=== PATIENT | female | born 1940 | race Caucasian/White ===

== ENCOUNTER 2017-05-08 11:22 | Emergency (ER) | payer OTHER ==
[~2017-05-08] VITALS: Wt 44.5 kg
[~2017-05-08 11:22] MED LIST: ALPRAZOLAM0.5 M3 PO; CHOLESTEROL PILL; CIPRODEX 0.3%-7.5 ML OT; COREG3.125 MG PO; HEART PILL; HYDROCODONE BIT1 T11 PO; HYDROCODONE BIT1 T20 PO; PLAVIX75 MG PO; PRAVASTATIN SOD80 MG PO; TEMAZEPAM30 MG PO; VICO75300 PO
[2017-05-08 11:46] LABS: BASO % 0.5 % (0.0-1.0); EOS # 0.2 10*3/uL (0.0-0.4); EOS % 2.8 % (1.0-4.0); HEMATOCRIT 40.1 % (37.0-47.0); HEMOGLOBIN 13.2 g/dl (12.0-16.0); LYMPH # 3.3 10*3/uL (1.3-4.4); LYMPH % 41.3 % (27.0-41.0); MEAN CELL VOLUME 95.2 fl (81.0-99.0); MEAN CORPUSCULAR HGB 31.4 pg (27.0-31.0); MEAN CORPUSCULAR HGB CONC 32.9 g/dl (33.0-37.0); MONO # 0.5 10*3/uL (0.1-1.0); MONO % 5.7 % (3.0-9.0); NEUT # 3.9 10*3/uL (2.3-7.9); NEUT % 49.4 % (47.0-73.0); PLATELET COUNT AUTOMATED 247 10*3/uL (130-400); RED BLOOD COUNT 4.21 10*6/uL (4.10-5.10); RED CELL DISTRI WIDTH 12.4 % (0-14.5); WHITE BLOOD COUNT 7.9 10*3/uL (4.8-10.8)
[2017-05-08 11:54] LABS: ACT PARTIAL THROMBO TIME 24.5 SECONDS (20.8-31.5)
[2017-05-08 12:04] LABS: ALBUMIN 3.7 gm/dl (3.1-4.5); ALKALINE PHOSPHATASE 73 U/L (45-117); BUN 6 mg/dl (7-24); CHLORIDE 106 mmol/L (98-107); CREATININE 0.69 mg/dL (0.55-1.02); SGOT/AST 14 IU/L (3-35); SGPT/ALT 11 U/L (12-78); SODIUM 139 mmol/L (136-145); TOTAL PROTEIN 6.8 gm/dL (6.4-8.2)
[2017-05-08 12:05] LABS: TROPONIN I < 0.015 ng/ml (<0.045)
[2017-05-08] MEDS ORDERED: COREG3.125 MG PO (12:08)
[2017-05-08] MEDS ORDERED: PLAVIX75 M1 PO ×2 (12:08→12:51)
[2017-05-08] MEDS ORDERED: PRAVACHOL80 M1 GT (12:09)
[2017-05-08] MEDS ORDERED: PROZAC20 MG PO (12:09)
[2017-05-08 12:36] LABS: BILIRUBIN NEGATIVE (NEGATIVE); BLOOD TRACE-INTACT (NEGATIVE); CLARITY SL CLOUDY (CLEAR); COLOR YELLOW (YELLOW); GLUCOSE NEGATIVE (NEGATIVE); KETONE NEGATIVE (NEGATIVE); LEUKO ESTERASE 2+ (NEGATIVE); NITRITE NEGATIVE (NEGATIVE); PH 5.5 (5.0-9.0); UROBILINOGEN 0.2 E.U./dl (0.2-1.0)
[2017-05-08 12:43] LABS: URINE AMPHETAMINES < 1000 (1000ng/ml); URINE BARBITURATES < 200 (200ng/ml); URINE BENZODIAZEPINES > 200 (200ng/ml); URINE CANNABINOIDS (THC) < 50 (50ng/ml); URINE COCAINE < 300 (300ng/ml); URINE METHADONE < 300 (300ng/ml); URINE OPIATES < 300 (300ng/ml)
[2017-05-08 12:46] LABS: WBC 16-20 wbc/hpf (0-5)
[2017-05-08 12:47] LABS: BACTERIA TRACE
[2017-05-08 12:49] LABS: URINE PHENCYCLIDINE < 25 (25ng/ml)
[2017-05-08] MEDS ORDERED: Bactrim DS PO (12:51)
== END 2017-05-08 13:41 | disposition home or self-care (01) ==
LOC: ED 11:22
PROVIDERS: Nurse Practitioner Family
DX: N30.01 Acute cystitis with hematuria (principal); R03.0 Elevated blood-pressure reading, without diagnosis of hypertension; R51 Headache; R29.810 Facial weakness; F17.200 Nicotine dependence, unspecified, uncomplicated; Z79.899 Other long term (current) drug therapy

== ENCOUNTER 2017-07-04 18:18 | Emergency (ER) | payer OTHER ==
[~2017-07-04] VITALS: Ht 165.1 cm; Wt 44.9 kg
[~2017-07-04 18:18] MED LIST changes: +Bactrim DS PO; +PLAVIX75 M1 PO; +PRAVACHOL80 M1 GT; +PROZAC20 MG PO
[2017-07-04] MEDS ORDERED: TEMAZEPAM30 MG PO (18:24)
[2017-07-04] MEDS ORDERED: ALPRAZOLAM0.5 M3 PO (18:25)
[2017-07-04 20:02] LABS: BASO % 0.5 % (0.0-1.0); EOS % 0.3 % (1.0-4.0); HEMATOCRIT 43.5 % (37.0-47.0); HEMOGLOBIN 14.6 g/dl (12.0-16.0); LYMPH # 2.3 10*3/uL (1.3-4.4); LYMPH % 31.5 % (27.0-41.0); MEAN CELL VOLUME 91.4 fl (81.0-99.0); MEAN CORPUSCULAR HGB 30.7 pg (27.0-31.0); MEAN CORPUSCULAR HGB CONC 33.6 g/dl (33.0-37.0); MEAN PLATELET VOLUME 8.6 fl (9.6-12.3); MONO # 0.4 10*3/uL (0.1-1.0); MONO % 4.9 % (3.0-9.0); NEUT # 4.6 10*3/uL (2.3-7.9); NEUT % 62.5 % (47.0-73.0); PLATELET COUNT AUTOMATED 289 10*3/uL (130-400); RED BLOOD COUNT 4.76 10*6/uL (4.10-5.10); RED CELL DISTRI WIDTH 12.1 % (0-14.5); WHITE BLOOD COUNT 7.3 10*3/uL (4.8-10.8)
[2017-07-04 20:18] LABS: ALBUMIN 4.4 gm/dl (3.1-4.5); ALKALINE PHOSPHATASE 73 U/L (45-117); BUN 6 mg/dl (7-24); CHLORIDE 103 mmol/L (98-107); CREATININE 0.76 mg/dL (0.55-1.02); POTASSIUM 3.8 mmol/L (3.5-5.1); SGOT/AST 15 IU/L (3-35); SGPT/ALT 14 U/L (12-78); SODIUM 136 mmol/L (136-145)
[2017-07-04 20:27] LABS: TROPONIN I < 0.015 ng/ml (<0.045)
[2017-07-04] MEDS ORDERED: NORCO 5-325 TA1 EACH PO (21:41)
[2017-07-04] MEDS ORDERED: CIPRO250 MG PO (21:41)
== END 2017-07-04 21:47 | disposition home or self-care (01) ==
LOC: ED 18:18
PROVIDERS: Emergency Medicine Emergency Medical Services
DX: J43.9 Emphysema, unspecified (principal); H60.501 Unspecified acute noninfective otitis externa, right ear; Z79.899 Other long term (current) drug therapy; Z95.5 Presence of coronary angioplasty implant and graft

== ENCOUNTER 2018-06-13 11:12 | Emergency (ER) | payer OTHER ==
[~2018-06-13] VITALS: Ht 162.5 cm; Wt 44.9 kg
[~2018-06-13 11:12] MED LIST changes: +CIPRO250 MG PO; +NORCO 5-325 TA1 EACH PO; -PRAVACHOL80 M1 GT; +PRAVACHOL80 M1 PO
== END 2018-06-13 13:09 | disposition home or self-care (01) ==
LOC: ED 11:12
DX: S20.212A Contusion of left front wall of thorax, initial encounter (principal); R03.0 Elevated blood-pressure reading, without diagnosis of hypertension; J43.9 Emphysema, unspecified; Z79.2 Long term (current) use of antibiotics; Z79.899 Other long term (current) drug therapy; W06.XXXA Fall from bed, initial encounter; Y93.89 Activity, other specified; Y92.89 Other specified places as the place of occurrence of the external cause; Y99.8 Other external cause status

== ENCOUNTER 2018-08-02 12:24 | Inpatient (IN) | payer OTHER ==
[~2018-08-02] VITALS: Ht 165.1 cm; Wt 45.8 kg
--- NOTE | ~2018-08-02 | EKG ---
[place], [place] ELECTROCARDIOGRAM REPORT NAME: ZACH ALVARENGA UNIT #: [id number] ROOM: [facility] DOCTOR: ARMEN DRAFT REPORT BIRTHDATE: [birth year] [facility] Test Date: 2018-08-02 Test Time: 13:06:36 Pat Name: ZACH ALVARENGA Department: Room: 005 Gender: F [employer] Technologist: EDUARDO : 1940 Requested By: JOO MENDOSA Order Number: [id number] Reading MD: Gt Snider MD Measurements Intervals [place] Rate: 74 P: 80 NE: 171 QRS: 56 QRSD: 88 T: 71 QT: 443 QTc: 492 Interpretive Statements Sinus rhythm Probable anteroseptal infarct, recent Electronically Signed On 08-02-2018 14:33:50 PST by Gt Snider MD CM:EKGRPT:ELECTROCARDIOGRAM REPORT [id number] JOO MENA DRAFT REPORT JOO MENDOSA DO
[2018-08-02 12:25] VITALS: BP 180/84
[2018-08-02 12:44] LABS: BASO % 0.5 % (0.0-1.0); EOS # 0.1 10*3/uL (0.0-0.4); EOS % 1.9 % (1.0-4.0); HEMOGLOBIN 13.2 g/dl (12.0-16.0); LYMPH # 2.9 10*3/uL (1.3-4.4); LYMPH % 39.3 % (27.0-41.0); MEAN CELL VOLUME 90.1 fl (81.0-99.0); MEAN CORPUSCULAR HGB 30.5 pg (27.0-31.0); MEAN CORPUSCULAR HGB CONC 33.8 g/dl (33.0-37.0); MEAN PLATELET VOLUME 9.1 fl (9.6-12.3); MONO # 0.4 10*3/uL (0.1-1.0); MONO % 5.6 % (3.0-9.0); NEUT # 3.8 10*3/uL (2.3-7.9); NEUT % 52.3 % (47.0-73.0); PLATELET COUNT AUTOMATED 272 10*3/uL (130-400); RED BLOOD COUNT 4.33 10*6/uL (4.10-5.10); RED CELL DISTRI WIDTH 12.6 % (0-14.5); WHITE BLOOD COUNT 7.3 10*3/uL (4.8-10.8)
[2018-08-02 12:55] LABS: ACT PARTIAL THROMBO TIME 23.6 SECONDS (20.8-31.5)
[2018-08-02 13:04] LABS: ALBUMIN 3.8 gm/dl (3.1-4.5); ALKALINE PHOSPHATASE 61 U/L (45-117); BUN 7 mg/dl (7-24); CHLORIDE 106 mmol/L (98-107); CREATININE 0.67 mg/dL (0.55-1.02); LIPASE 114 U/L (73-393); SGOT/AST 14 IU/L (3-35); SGPT/ALT 15 U/L (12-78); SODIUM 141 mmol/L (136-145); TOTAL PROTEIN 7.1 gm/dL (6.4-8.2)
[2018-08-02 13:09] LABS: TROPONIN I < 0.015 ng/ml (<0.045)
[2018-08-02 13:37] LABS: BILIRUBIN NEGATIVE (NEGATIVE); BLOOD NEGATIVE (NEGATIVE); CLARITY SL CLOUDY (CLEAR); COLOR YELLOW (YELLOW); GLUCOSE NEGATIVE (NEGATIVE); KETONE NEGATIVE (NEGATIVE); LEUKO ESTERASE 1+ (NEGATIVE); NITRITE NEGATIVE (NEGATIVE); SPECIFIC GRAVITY 1.015 (1.005-1.030); UROBILINOGEN 0.2 E.U./dl (0.2-1.0)
[2018-08-02 13:49] LABS: WBC 41-50 wbc/hpf (0-5)
[2018-08-02 13:50] LABS: BACTERIA 2+; EPITHELIAL CELLS 20-30; RBC 21-30 rbc/hpf (0-2)
[2018-08-02 16:00] VITALS: BP 190/95
[2018-08-02] MEDS ORDERED: PROZAC20 MG PO (16:18)
[2018-08-02] MEDS ORDERED: EFFEXOR XR37.5 M1 PO (16:19)
[2018-08-02 16:40] VITALS: BP 190/95
[2018-08-02 20:00] VITALS: BP 126/57
[2018-08-03] VITALS (7 sets, daily range): BP systolic 126–166; BP diastolic 52–79
[2018-08-03 06:40] LABS: BASO % 0.3 % (0.0-1.0); EOS # 0.1 10*3/uL (0.0-0.4); EOS % 1.8 % (1.0-4.0); HEMOGLOBIN 11.9 g/dl (12.0-16.0); LYMPH # 2.4 10*3/uL (1.3-4.4); LYMPH % 36.1 % (27.0-41.0); MEAN CORPUSCULAR HGB 29.6 pg (27.0-31.0); MEAN CORPUSCULAR HGB CONC 32.2 g/dl (33.0-37.0); MEAN PLATELET VOLUME 9.4 fl (9.6-12.3); MONO # 0.4 10*3/uL (0.1-1.0); MONO % 5.8 % (3.0-9.0); NEUT # 3.6 10*3/uL (2.3-7.9); NEUT % 55.7 % (47.0-73.0); PLATELET COUNT AUTOMATED 236 10*3/uL (130-400); RED BLOOD COUNT 4.02 10*6/uL (4.10-5.10); RED CELL DISTRI WIDTH 12.4 % (0-14.5); WHITE BLOOD COUNT 6.5 10*3/uL (4.8-10.8)
[2018-08-03 07:06] LABS: CHLORIDE 109 mmol/L (98-107); POTASSIUM 3.6 mmol/L (3.5-5.1); SODIUM 141 mmol/L (136-145)
[2018-08-03 07:23] LABS: BUN 8 mg/dl (7-24); CHOLESTEROL 227 mg/dL (<200); CREATININE 0.69 mg/dL (0.55-1.02); FREE T4 0.97 ng/dl (0.76-1.46); HDL CHOLESTEROL 43 mg/dl (40-60); LDL CHOLESTEROL 154 mg/dL (9-159); PHOSPHOROUS 3.1 mg/dL (2.5-4.9); THYROID STIM HORMONE (HS) 0.923 uIU/ml (0.358-4.75); TRIGLYCERIDES 151 mg/dl (<150); VLDL CHOLESTEROL 30 mg/dL (6-40)
[2018-08-03 07:28] LABS: VITAMIN D, 25-HYDROXY 14.2 ng/mL (30-100)
[2018-08-04] VITALS: BP 141/59
[2018-08-04 07:04] LABS: BASO % 0.6 % (0.0-1.0); EOS # 0.1 10*3/uL (0.0-0.4); HEMATOCRIT 37.8 % (37.0-47.0); HEMOGLOBIN 12.3 g/dl (12.0-16.0); LYMPH # 2.8 10*3/uL (1.3-4.4); LYMPH % 43.4 % (27.0-41.0); MEAN CELL VOLUME 91.7 fl (81.0-99.0); MEAN CORPUSCULAR HGB 29.9 pg (27.0-31.0); MEAN CORPUSCULAR HGB CONC 32.5 g/dl (33.0-37.0); MEAN PLATELET VOLUME 9.4 fl (9.6-12.3); MONO # 0.4 10*3/uL (0.1-1.0); MONO % 5.8 % (3.0-9.0); NEUT # 3.1 10*3/uL (2.3-7.9); PLATELET COUNT AUTOMATED 225 10*3/uL (130-400); RED BLOOD COUNT 4.12 10*6/uL (4.10-5.10); RED CELL DISTRI WIDTH 12.4 % (0-14.5); WHITE BLOOD COUNT 6.4 10*3/uL (4.8-10.8)
[2018-08-04 07:20] LABS: ALBUMIN 3.4 gm/dl (3.1-4.5); BUN 7 mg/dl (7-24); CHLORIDE 109 mmol/L (98-107); CREATININE 0.52 mg/dL (0.55-1.02); POTASSIUM 3.6 mmol/L (3.5-5.1); SGOT/AST 11 IU/L (3-35); SGPT/ALT 10 U/L (12-78); SODIUM 143 mmol/L (136-145)
[2018-08-04 07:21] LABS: ALKALINE PHOSPHATASE 53 U/L (45-117); TOTAL PROTEIN 6.4 gm/dL (6.4-8.2)
[2018-08-04 08:00] VITALS: BP 183/77
[2018-08-04 12:18] VITALS: BP 176/92
[2018-08-04 15:10] VITALS: BP 155/75
[2018-08-04] MEDS ORDERED: B12,B-12,B 12500 MC1 PO (16:34)
[2018-08-04] MEDS ORDERED: VITAMIN D32000 UNI1 PO (16:34)
[2018-08-04 17:36] VITALS: BP 150/88
[2018-08-04 20:00] VITALS: BP 154/90
[2018-08-05] VITALS: BP 154/83
[2018-08-05 08:28] VITALS: BP 169/72
== END 2018-08-05 11:35 | disposition home or self-care (01) | DRG 690 ==
LOC: ED 12:24 → 5E 16:01 → EDHOLD 16:01 → 5E 16:11
PROVIDERS: Emergency Medicine; Internal Medicine
PROC: 0HQ1XZZ Repair Face Skin, External Approach (ICD-10-PCS; principal; 2018-08-02)
DX: N39.0 Urinary tract infection, site not specified (principal); I25.810 Atherosclerosis of coronary artery bypass graft(s) without angina pectoris; I95.1 Orthostatic hypotension; R63.6 Underweight; J43.9 Emphysema, unspecified; M54.9 Dorsalgia, unspecified; G89.29 Other chronic pain; M54.2 Cervicalgia; M19.90 Unspecified osteoarthritis, unspecified site; F17.210 Nicotine dependence, cigarettes, uncomplicated; I11.9 Hypertensive heart disease without heart failure; S01.112A Laceration without foreign body of left eyelid and periocular area, initial encounter; W01.0XXA Fall on same level from slipping, tripping and stumbling without subsequent striking against object, initial encounter; S00.03XA Contusion of scalp, initial encounter; Y93.89 Activity, other specified; Y92.89 Other specified places as the place of occurrence of the external cause; Y99.8 Other external cause status; Z71.6 Tobacco abuse counseling; Z87.440 Personal history of urinary (tract) infections; Z90.49 Acquired absence of other specified parts of digestive tract; Z95.5 Presence of coronary angioplasty implant and graft; Z95.1 Presence of aortocoronary bypass graft; I25.2 Old myocardial infarction; Z80.1 Family history of malignant neoplasm of trachea, bronchus and lung; Z80.3 Family history of malignant neoplasm of breast; Z79.899 Other long term (current) drug therapy; Z79.02 Long term (current) use of antithrombotics/antiplatelets

== ENCOUNTER 2018-08-08 13:21 | Emergency (ER) | payer OTHER ==
[~2018-08-08] VITALS: Ht 165.1 cm; Wt 45.4 kg
[~2018-08-08 13:21] MED LIST changes: +B12,B-12,B 12500 MC1 PO; +EFFEXOR XR37.5 M1 PO; +VITAMIN D32000 UNI1 PO
== END 2018-08-08 14:23 | disposition home or self-care (01) ==
LOC: ED 13:21
DX: S01.112D Laceration without foreign body of left eyelid and periocular area, subsequent encounter (principal); I25.10 Atherosclerotic heart disease of native coronary artery without angina pectoris; I10 Essential (primary) hypertension; F17.210 Nicotine dependence, cigarettes, uncomplicated; M19.90 Unspecified osteoarthritis, unspecified site; Z90.49 Acquired absence of other specified parts of digestive tract; Z79.899 Other long term (current) drug therapy; Z95.1 Presence of aortocoronary bypass graft; W19.XXXD Unspecified fall, subsequent encounter

== ENCOUNTER 2018-12-05 18:30 | Emergency (ER) | payer OTHER ==
[~2018-12-05] VITALS: Ht 154.9 cm; Wt 45.4 kg
[2018-12-05 19:12] LABS: BASO # 0.1 10*3/uL (0.0-0.1); BASO % 0.7 % (0.0-1.0); EOS # 0.2 10*3/uL (0.0-0.4); HEMATOCRIT 36.9 % (37.0-47.0); HEMOGLOBIN 12.3 g/dl (12.0-16.0); LYMPH # 3.7 10*3/uL (1.3-4.4); LYMPH % 50.6 % (27.0-41.0); MEAN CELL VOLUME 93.4 fl (81.0-99.0); MEAN CORPUSCULAR HGB 31.1 pg (27.0-31.0); MEAN CORPUSCULAR HGB CONC 33.3 g/dl (33.0-37.0); MEAN PLATELET VOLUME 9.3 fl (9.6-12.3); MONO # 0.5 10*3/uL (0.1-1.0); MONO % 6.5 % (3.0-9.0); NEUT # 2.9 10*3/uL (2.3-7.9); NEUT % 38.9 % (47.0-73.0); PLATELET COUNT AUTOMATED 256 10*3/uL (130-400); RED BLOOD COUNT 3.95 10*6/uL (4.10-5.10); RED CELL DISTRI WIDTH 13.1 % (0-14.5); WHITE BLOOD COUNT 7.4 10*3/uL (4.8-10.8)
[2018-12-05 19:50] LABS: ALBUMIN 3.5 gm/dl (3.1-4.5); ALKALINE PHOSPHATASE 70 U/L (45-117); BUN 9 mg/dl (7-24); CHLORIDE 108 mmol/L (98-107); CREATININE 0.75 mg/dL (0.55-1.02); LIPASE 81 U/L (73-393); POTASSIUM 3.7 mmol/L (3.5-5.1); SGOT/AST 12 IU/L (3-35); SGPT/ALT 14 U/L (12-78); SODIUM 142 mmol/L (136-145); TOTAL PROTEIN 6.7 gm/dL (6.4-8.2)
[2018-12-05 20:21] LABS: BILIRUBIN NEGATIVE (NEGATIVE); BLOOD NEGATIVE (NEGATIVE); CLARITY CLEAR (CLEAR); COLOR YELLOW (YELLOW); GLUCOSE NEGATIVE (NEGATIVE); KETONE NEGATIVE (NEGATIVE); LEUKO ESTERASE 2+ (NEGATIVE); NITRITE NEGATIVE (NEGATIVE); SPECIFIC GRAVITY <= 1.005 (1.005-1.030); UROBILINOGEN 0.2 E.U./dl (0.2-1.0)
[2018-12-05 20:28] LABS: BACTERIA 2+; MUCOUS TRACE; RBC 0-2 rbc/hpf (0-2)
[2018-12-05] MEDS ORDERED: AMINOPHYLLIN200 MG PO (21:15)
[2018-12-09] MEDS ORDERED: AUGMENTIN 875-875 MG PO (16:47)
[2018-12-09] MEDS ORDERED: ZYRTEC10 MG PO (16:50)
[2018-12-09] MEDS ORDERED: FLONASE ALLERG9.9 ML NAS (16:50)
== END 2018-12-05 21:40 | disposition home or self-care (01) ==
LOC: ED 18:30
PROVIDERS: Physician Assistant
DX: N39.0 Urinary tract infection, site not specified (principal); M54.5 Low back pain; F17.210 Nicotine dependence, cigarettes, uncomplicated; Z79.899 Other long term (current) drug therapy; Z90.49 Acquired absence of other specified parts of digestive tract

== ENCOUNTER 2019-05-16 12:45 | Emergency (ER) | payer OTHER ==
[~2019-05-16] VITALS: Ht 162.5 cm; Wt 49.9 kg
[~2019-05-16 12:45] MED LIST changes: +AMINOPHYLLIN200 MG PO; +AUGMENTIN 875-875 MG PO; +FLONASE ALLERG9.9 ML NAS; +ZYRTEC10 MG PO
== END 2019-05-16 14:44 | disposition home or self-care (01) ==
LOC: ED 12:45
DX: G89.29 Other chronic pain (principal); M25.551 Pain in right hip; M25.561 Pain in right knee; F17.210 Nicotine dependence, cigarettes, uncomplicated; Z79.899 Other long term (current) drug therapy; Z90.49 Acquired absence of other specified parts of digestive tract

== ENCOUNTER → 2020-03-06 | Outpatient (CLI) | payer OTHER | END | disposition home or self-care (01) | LOC: MRI 10:15 | DX: M51.36 Other intervertebral disc degeneration, lumbar region (principal); M48.07 Spinal stenosis, lumbosacral region ==

== ENCOUNTER 2020-04-07 14:16 | Emergency (ER) | payer OTHER ==
[2020-04-07 16:34] LABS: BASO # 0.1 10*3/uL (0.0-0.1); BASO % 0.5 % (0.0-1.0); EOS # 0.2 10*3/uL (0.0-0.4); EOS % 1.5 % (1.0-4.0); HEMATOCRIT 45.1 % (37.0-47.0); LYMPH # 3.6 10*3/uL (1.3-4.4); LYMPH % 35.9 % (27.0-41.0); MEAN CELL VOLUME 93.6 fl (81.0-99.0); MEAN CORPUSCULAR HGB 29.5 pg (27.0-31.0); MEAN CORPUSCULAR HGB CONC 31.5 g/dl (33.0-37.0); MEAN PLATELET VOLUME 9.7 fl (9.6-12.3); MONO # 0.6 10*3/uL (0.1-1.0); MONO % 5.8 % (3.0-9.0); NEUT # 5.6 10*3/uL (2.3-7.9); PLATELET COUNT AUTOMATED 290 10*3/uL (130-400); RED BLOOD COUNT 4.82 10*6/uL (4.10-5.10); RED CELL DISTRI WIDTH 12.7 % (0-14.5)
== END 2020-04-07 17:15 | disposition home or self-care (01) ==
LOC: ED 14:16
PROVIDERS: Internal Medicine
DX: M54.5 Low back pain (principal); F17.210 Nicotine dependence, cigarettes, uncomplicated; Z79.899 Other long term (current) drug therapy

== ENCOUNTER 2020-11-26 17:05 | Emergency (ER) | payer OTHER ==
[~2020-11-26] VITALS: Wt 54.0 kg
== END 2020-11-26 18:45 | disposition home or self-care (01) ==
LOC: ED 17:05
DX: S63.502A Unspecified sprain of left wrist, initial encounter (principal); Z79.899 Other long term (current) drug therapy; Z90.49 Acquired absence of other specified parts of digestive tract; Z95.5 Presence of coronary angioplasty implant and graft; Z87.891 Personal history of nicotine dependence; X50.0XXA Overexertion from strenuous movement or load, initial encounter; Y93.89 Activity, other specified; Y92.89 Other specified places as the place of occurrence of the external cause; Y99.8 Other external cause status

== ENCOUNTER 2021-02-28 04:45 | Emergency (ER) | payer OTHER ==
[~2021-02-28] VITALS: Wt 52.2 kg
[2021-02-28 06:13] LABS: BASO # 0.1 10*3/uL (0.0-0.1); BASO % 0.6 % (0.0-1.0); EOS # 0.2 10*3/uL (0.0-0.4); EOS % 2.8 % (1.0-4.0); HEMATOCRIT 41.9 % (37.0-47.0); LYMPH % 36.2 % (27.0-41.0); MEAN CELL VOLUME 93.5 fl (81.0-99.0); MEAN CORPUSCULAR HGB 30.1 pg (27.0-31.0); MEAN CORPUSCULAR HGB CONC 32.2 g/dl (33.0-37.0); MEAN PLATELET VOLUME 9.6 fl (9.6-12.3); MONO # 0.6 10*3/uL (0.1-1.0); MONO % 7.3 % (3.0-9.0); NEUT # 4.3 10*3/uL (2.3-7.9); NEUT % 52.6 % (47.0-73.0); PLATELET COUNT AUTOMATED 335 10*3/uL (130-400); RED BLOOD COUNT 4.48 10*6/uL (4.10-5.10); RED CELL DISTRI WIDTH 12.3 % (0-14.5); WHITE BLOOD COUNT 8.2 10*3/uL (4.8-10.8)
[2021-02-28 06:31] LABS: ALBUMIN 3.4 gm/dl (3.1-4.5); ALKALINE PHOSPHATASE 64 U/L (45-117); BUN 9 mg/dl (7-24); CHLORIDE 109 mmol/L (98-107); CREATININE 0.67 mg/dL (0.55-1.02); POTASSIUM 3.8 mmol/L (3.5-5.1); SGOT/AST 12 IU/L (3-35); SGPT/ALT 15 U/L (12-78); SODIUM 142 mmol/L (136-145); TOTAL PROTEIN 6.9 gm/dL (6.4-8.2)
[2021-02-28 06:33] LABS: TROPONIN I < 0.015 ng/ml (<0.045)
[2021-02-28] MEDS ORDERED: VIBRAMYCIN100 MG PO (07:04)
[2021-02-28] MEDS ORDERED: PREDNISONE10 M1 PO (07:04)
== END 2021-02-28 07:25 | disposition left against medical advice (07) ==
LOC: ED 04:45
PROVIDERS: Emergency Medicine
DX: J44.1 Chronic obstructive pulmonary disease with (acute) exacerbation (principal); Z79.899 Other long term (current) drug therapy

== ENCOUNTER 2021-05-20 18:43 | Emergency (ER) | payer OTHER ==
[~2021-05-20] VITALS: Ht 165.1 cm; Wt 54.4 kg
[~2021-05-20 18:43] MED LIST changes: +PREDNISONE10 M1 PO; +VIBRAMYCIN100 MG PO
[2021-05-20 20:15] LABS: BASO % 0.3 % (0.0-1.0); EOS % 0.8 % (1.0-4.0); HEMATOCRIT 44.6 % (37.0-47.0); LYMPH # 1.8 10*3/uL (1.3-4.4); MEAN CELL VOLUME 93.7 fl (81.0-99.0); MEAN CORPUSCULAR HGB 30.3 pg (27.0-31.0); MEAN CORPUSCULAR HGB CONC 32.3 g/dl (33.0-37.0); MEAN PLATELET VOLUME 10.1 fl (9.6-12.3); MONO # 0.3 10*3/uL (0.1-1.0); MONO % 6.8 % (3.0-9.0); NEUT # 1.9 10*3/uL (2.3-7.9); NEUT % 46.8 % (47.0-73.0); PLATELET COUNT AUTOMATED 206 10*3/uL (130-400); RED BLOOD COUNT 4.76 10*6/uL (4.10-5.10); RED CELL DISTRI WIDTH 12.2 % (0-14.5)
[2021-05-20 20:33] LABS: ALBUMIN 3.9 gm/dl (3.1-4.5); ALKALINE PHOSPHATASE 73 U/L (45-117); BUN 8 mg/dl (7-24); CHLORIDE 109 mmol/L (98-107); CREATININE 0.68 mg/dL (0.55-1.02); LDH 173 U/L (84-246); POTASSIUM 3.7 mmol/L (3.5-5.1); SGOT/AST 23 IU/L (3-35); SGPT/ALT 30 U/L (12-78); SODIUM 143 mmol/L (136-145); TOTAL PROTEIN 7.2 gm/dL (6.4-8.2)
[2021-05-20 23:16] LABS: BILIRUBIN Negative (Negative); BLOOD Negative (Negative); CLARITY Clear (Clear); COLOR Yellow (Yellow); GLUCOSE Negative (Negative); KETONE Negative (Negative); LEUKO ESTERASE Trace (Negative); NITRITE Negative (Negative)
[2021-05-20 23:42] LABS: BACTERIA TRACE
[2021-05-22] MEDS ORDERED: OXYGEN NAS (18:25)
== END 2021-05-21 03:08 | disposition home or self-care (01) ==
LOC: ED 18:43
PROVIDERS: Emergency Medicine
DX: U07.1 COVID-19 (principal); J44.9 Chronic obstructive pulmonary disease, unspecified; I25.10 Atherosclerotic heart disease of native coronary artery without angina pectoris; I25.2 Old myocardial infarction; M19.90 Unspecified osteoarthritis, unspecified site; F17.210 Nicotine dependence, cigarettes, uncomplicated; Z79.899 Other long term (current) drug therapy; Z98.61 Coronary angioplasty status; Z90.49 Acquired absence of other specified parts of digestive tract

== ENCOUNTER 2021-05-22 18:06 | Inpatient (IN) | payer OTHER ==
[~2021-05-22] VITALS: Ht 153.7 cm; Wt 51.3 kg
[2021-05-22 18:18] VITALS: BP 102/58
[2021-05-22] MEDS ORDERED: OXYGEN NAS (18:25)
[2021-05-22 18:43] LABS: BASO % 0.2 % (0.0-1.0); EOS % 0.2 % (1.0-4.0); HEMATOCRIT 41.9 % (37.0-47.0); LYMPH % 23.4 % (27.0-41.0); MEAN CELL VOLUME 93.5 fl (81.0-99.0); MEAN CORPUSCULAR HGB 29.9 pg (27.0-31.0); MEAN PLATELET VOLUME 10.6 fl (9.6-12.3); MONO # 0.2 10*3/uL (0.1-1.0); MONO % 3.9 % (3.0-9.0); NEUT # 2.9 10*3/uL (2.3-7.9); NEUT % 71.6 % (47.0-73.0); PLATELET COUNT AUTOMATED 152 10*3/uL (130-400); RED BLOOD COUNT 4.48 10*6/uL (4.10-5.10); RED CELL DISTRI WIDTH 12.4 % (0-14.5); WHITE BLOOD COUNT 4.1 10*3/uL (4.8-10.8)
[2021-05-22 18:51] VITALS: BP 122/62
[2021-05-22 19:13] LABS: ALBUMIN 3.5 gm/dl (3.1-4.5); ALKALINE PHOSPHATASE 65 U/L (45-117); BUN 8 mg/dl (7-24); CHLORIDE 112 mmol/L (98-107); CPK 64 U/L (26-192); CREATININE 0.69 mg/dL (0.55-1.02); POTASSIUM 3.7 mmol/L (3.5-5.1); SGOT/AST 30 IU/L (3-35); SGPT/ALT 26 U/L (12-78); SODIUM 143 mmol/L (136-145); TOTAL PROTEIN 6.7 gm/dL (6.4-8.2); TROPONIN I 0.031 ng/ml (<0.045)
[2021-05-22 19:39] VITALS: BP 126/88
[2021-05-22 23:00] VITALS: BP 169/88
[2021-05-23] MEDS ORDERED: PLAVIX75 M1 PO (00:03)
[2021-05-23] MEDS ORDERED: ULTRAM50 MG PO (00:06)
[2021-05-23 06:43] LABS: HEMATOCRIT 40.8 % (37.0-47.0); MEAN CELL VOLUME 93.8 fl (81.0-99.0); MEAN CORPUSCULAR HGB 30.1 pg (27.0-31.0); MEAN CORPUSCULAR HGB CONC 32.1 g/dl (33.0-37.0); PLATELET COUNT AUTOMATED 164 10*3/uL (130-400); RED BLOOD COUNT 4.35 10*6/uL (4.10-5.10); RED CELL DISTRI WIDTH 12.4 % (0-14.5); WHITE BLOOD COUNT 6.1 10*3/uL (4.8-10.8)
[2021-05-23 06:51] LABS: ACT PARTIAL THROMBO TIME 37.9 SECONDS (20.0-32.1)
[2021-05-23 06:55] LABS: ALBUMIN 3.2 gm/dl (3.1-4.5); ALKALINE PHOSPHATASE 64 U/L (45-117); BUN 11 mg/dl (7-24); CHLORIDE 111 mmol/L (98-107); CHOLESTEROL 136 mg/dL (<200); CREATININE 0.57 mg/dL (0.55-1.02); POTASSIUM 3.5 mmol/L (3.5-5.1); SGOT/AST 28 IU/L (3-35); SGPT/ALT 24 U/L (12-78); SODIUM 140 mmol/L (136-145); TOTAL PROTEIN 6.4 gm/dL (6.4-8.2); TRIGLYCERIDES 98 mg/dl (<150)
[2021-05-23 07:01] LABS: LDL CHOLESTEROL 84 mg/dL (9-159); THYROID STIM HORMONE (HS) 0.243 uIU/ml (0.358-4.75)
[2021-05-23 07:28] LABS: ATYPICAL LYMPHS 1 % (0-0); PLATELET SUFFICIENCY NORMAL (NORMAL); TOTAL CELLS COUNTED 100 #CELLS
[2021-05-23 08:00] VITALS: BP 117/82
[2021-05-23 11:19] LABS: VITAMIN D, 25-HYDROXY 23.9 ng/mL (30-100)
[2021-05-23 12:00] VITALS: BP 113/65
[2021-05-23 16:00] VITALS: BP 101/77
[2021-05-23 20:00] VITALS: BP 134/78
[2021-05-24] VITALS: BP 125/73
[2021-05-24 07:24] LABS: HEMATOCRIT 42.8 % (37.0-47.0); LYMPH # 1.7 10*3/uL (1.3-4.4); LYMPH % 29.5 % (27.0-41.0); MEAN CELL VOLUME 94.7 fl (81.0-99.0); MEAN CORPUSCULAR HGB 29.6 pg (27.0-31.0); MEAN CORPUSCULAR HGB CONC 31.3 g/dl (33.0-37.0); MEAN PLATELET VOLUME 10.7 fl (9.6-12.3); MONO # 0.4 10*3/uL (0.1-1.0); MONO % 6.8 % (3.0-9.0); NEUT # 3.7 10*3/uL (2.3-7.9); NEUT % 63.4 % (47.0-73.0); RED BLOOD COUNT 4.52 10*6/uL (4.10-5.10); RED CELL DISTRI WIDTH 12.7 % (0-14.5); WHITE BLOOD COUNT 5.9 10*3/uL (4.8-10.8)
[2021-05-24 07:33] LABS: PLATELET COUNT AUTOMATED 218 10*3/uL (130-400)
[2021-05-24 07:45] LABS: ALBUMIN 3.2 gm/dl (3.1-4.5); ALKALINE PHOSPHATASE 59 U/L (45-117); BUN 18 mg/dl (7-24); CHLORIDE 109 mmol/L (98-107); CREATININE 0.71 mg/dL (0.55-1.02); POTASSIUM 3.7 mmol/L (3.5-5.1); SGOT/AST 31 IU/L (3-35); SGPT/ALT 26 U/L (12-78); SODIUM 143 mmol/L (136-145); TOTAL PROTEIN 6.9 gm/dL (6.4-8.2)
[2021-05-24 08:00] VITALS: BP 127/55
[2021-05-24 12:00] VITALS: BP 157/86
[2021-05-24 16:00] VITALS: BP 132/77
[2021-05-24 20:00] VITALS: BP 172/74
[2021-05-25] VITALS: BP 153/71
[2021-05-25 06:26] LABS: BASO % 0.2 % (0.0-1.0); HEMATOCRIT 41.6 % (37.0-47.0); LYMPH # 1.7 10*3/uL (1.3-4.4); LYMPH % 27.3 % (27.0-41.0); MEAN CELL VOLUME 94.5 fl (81.0-99.0); MEAN CORPUSCULAR HGB 29.8 pg (27.0-31.0); MEAN CORPUSCULAR HGB CONC 31.5 g/dl (33.0-37.0); MEAN PLATELET VOLUME 10.6 fl (9.6-12.3); MONO # 0.5 10*3/uL (0.1-1.0); MONO % 8.4 % (3.0-9.0); NEUT # 3.9 10*3/uL (2.3-7.9); NEUT % 63.8 % (47.0-73.0); PLATELET COUNT AUTOMATED 255 10*3/uL (130-400); RED CELL DISTRI WIDTH 12.4 % (0-14.5); WHITE BLOOD COUNT 6.1 10*3/uL (4.8-10.8)
[2021-05-25 06:40] LABS: CHLORIDE 108 mmol/L (98-107); POTASSIUM 3.6 mmol/L (3.5-5.1); SODIUM 140 mmol/L (136-145)
[2021-05-25 06:44] LABS: BUN 19 mg/dl (7-24); LDH 193 U/L (84-246)
[2021-05-25 08:00] VITALS: BP 146/65
[2021-05-25 12:00] VITALS: BP 146/65
[2021-05-25 16:00] VITALS: BP 120/82
[2021-05-25 20:00] VITALS: BP 149/84
[2021-05-26] VITALS: BP 154/77
[2021-05-26 07:13] LABS: ALBUMIN 2.9 gm/dl (3.1-4.5); ALKALINE PHOSPHATASE 48 U/L (45-117); BUN 20 mg/dl (7-24); CHLORIDE 109 mmol/L (98-107); CREATININE 0.47 mg/dL (0.55-1.02); SGOT/AST 27 IU/L (3-35); SGPT/ALT 29 U/L (12-78); SODIUM 141 mmol/L (136-145); TOTAL PROTEIN 6.4 gm/dL (6.4-8.2)
[2021-05-26 07:21] LABS: BASO % 0.1 % (0.0-1.0); HEMATOCRIT 39.6 % (37.0-47.0); LYMPH # 1.6 10*3/uL (1.3-4.4); LYMPH % 19.9 % (27.0-41.0); MEAN CELL VOLUME 92.1 fl (81.0-99.0); MEAN CORPUSCULAR HGB CONC 32.6 g/dl (33.0-37.0); MEAN PLATELET VOLUME 10.4 fl (9.6-12.3); MONO # 0.8 10*3/uL (0.1-1.0); MONO % 9.4 % (3.0-9.0); NEUT # 5.7 10*3/uL (2.3-7.9); NEUT % 69.7 % (47.0-73.0); PLATELET COUNT AUTOMATED 247 10*3/uL (130-400); RED CELL DISTRI WIDTH 12.4 % (0-14.5); WHITE BLOOD COUNT 8.2 10*3/uL (4.8-10.8)
[2021-05-26 08:00] VITALS: BP 137/72
[2021-05-26] MEDS ORDERED: DECADRON6 M1 PO (11:57)
[2021-05-26 16:00] VITALS: BP 128/72
== END 2021-05-26 17:31 | disposition home or self-care (01) | DRG 177 ==
LOC: ED 18:06 → EDHOLD 19:04 → 4E 19:04
PROVIDERS: Emergency Medicine; Family Medicine; Hospitalist; Internal Medicine; ADMIT Student in an Organized Health Care Education/Training Program; ATTEND Student in an Organized Health Care Education/Training Program
PROC: XW033E5 Introduction of Remdesivir Anti-infective into Peripheral Vein, Percutaneous Approach, New Technology Group 5 (ICD-10-PCS; principal; 2021-05-23)
DX: U07.1 COVID-19 (principal); J12.82 Pneumonia due to coronavirus disease 2019; J96.00 Acute respiratory failure, unspecified whether with hypoxia or hypercapnia; I25.10 Atherosclerotic heart disease of native coronary artery without angina pectoris; M19.90 Unspecified osteoarthritis, unspecified site; R73.9 Hyperglycemia, unspecified; J43.9 Emphysema, unspecified; I11.0 Hypertensive heart disease with heart failure; I50.9 Heart failure, unspecified; E78.2 Mixed hyperlipidemia; F17.210 Nicotine dependence, cigarettes, uncomplicated; Z71.6 Tobacco abuse counseling